=== PATIENT | female | born 1975 | race Caucasian/White ===

== ENCOUNTER 2023-04-20 12:09 | Outpatient (REF) | payer OTHER, SELFPAY ==
[2023-04-20 14:27] LABS: Folate 7.9 ng/mL (> or = 4.0); Vitamin B12 362 pg/mL (200-900)
[2023-04-20 14:43] LABS: Erythrocyte Sedimentation Rate 10 MM/HR (0-20)
[2023-04-21 18:03] LABS: Lyme Abs Screen <0.90 index
== END 2023-04-20 12:10 | disposition home or self-care (01) ==
LOC: HO.LAB 12:09
PROVIDERS: PCP Family Medicine; Visit Provider Psychiatry & Neurology Neurology
DX: G93.40 Encephalopathy, unspecified (principal)
CPT/HCPCS: 36415; 82607; 82746; 85652; 86617; 86618